=== PATIENT | female | born 1980 | race Caucasian/White ===

== ENCOUNTER → 2021-04-16 | Emergency (ER) | payer OTHER, MEDICAID ==
[~2021-04-16] VITALS: Ht 157.5 cm; Wt 79.4 kg
[~2021-04-16] MED LIST: ACETAZOLAMIDE500 MG PO; AMERGE1 MG PO; COMPAZINE10 MG PO; DIAMOX; DIAMOX PO; FIORICET 50-321 EACH PO; FLEXERIL PO; LYRICA 50 MG50 MG PO; LYRICA 75 MG CA75 MG PO; MEDROLDOSEPACK PO; METHADONE HCL5 MG PO; NEXIUM40 MG PO; NORCO 5-325 TA1 EACH PO; PERCOCET 10-321 EACH PO; PRILOSEC 20 MG20 MG PO; PROAIR HFA8.5 GM INH; PROPOXY-N/APAP1 TAB PO; TESSALON PERLE100 MG PO; VALIUM2 MG PO; [UNRECOGNIZED DRUG - OTHER]
[2021-04-16 15:50] VITALS: BP 124/80
== END ==
LOC: M.ERS 15:35
DX: J06.9 Acute upper respiratory infection, unspecified (principal); Z20.822 Contact with and (suspected) exposure to COVID-19; J45.909 Unspecified asthma, uncomplicated; G43.909 Migraine, unspecified, not intractable, without status migrainosus; F32.9 Major depressive disorder, single episode, unspecified; F41.9 Anxiety disorder, unspecified; K21.9 Gastro-esophageal reflux disease without esophagitis; F17.210 Nicotine dependence, cigarettes, uncomplicated; Z87.442 Personal history of urinary calculi; Z79.899 Other long term (current) drug therapy; Z88.5 Allergy status to narcotic agent